=== PATIENT | female | born 1985 ===

== ENCOUNTER 2023-10-30 07:44 | Day surgery (SDC) | payer OTHER ==
[2023-10-30] MEDS ORDERED: POVIDONE-IODINE 118 ML BOTT TOP ONE ×2 (14:24→15:45)
[2023-10-30] MEDS ORDERED: LIDOCAINE HCL 1%/Epi 20ML VIAL IJ ONE ×2 (14:24→16:00)
[2023-10-30] MEDS ORDERED: CEFTRIAXONE SODIUM 2,000 MG VIAL ONE (14:24)
[2023-10-30] MEDS ORDERED: DIBUCAINE 15 GM OINT..GM. TUBE ONE (14:24)
[2023-10-30] MEDS ORDERED: BUPIVACAINE HCL/PF 0.25% 30ML VIAL InF ONE (14:24)
[2023-10-30] MEDS ORDERED: METRONIDAZOLE/SODIUM CHLORIDE 500 MG/100 ML PIGGYBACK IV ONE ×2 (14:24→16:00)
[2023-10-30] MEDS ORDERED: HEMOSTATIC MATRIX 1 KIT KIT TOP ONE ×2 (14:29→16:00)
[2023-10-30] MEDS ORDERED: TRIAMCINOLONE ACETONIDE 40 MG/ML VIAL ONE (14:29)
[2023-10-30] MEDS ORDERED: TRIAMCINOLONE ACETONIDE 40 MG/ML VIAL IJ ONE (15:45)
[2023-10-30] MEDS ORDERED: BUPIVACAINE HCL 30 ML VIAL IJ ONE (15:45)
[2023-10-30] MEDS ORDERED: CEFTRIAXONE SODIUM 2,000 MG VIAL IV ONE (16:00)
[2023-10-30] MEDS ORDERED: DIBUCAINE 15 GM OINT..GM. TUBE RECTAL ONE (16:00)
== END 2023-10-30 19:20 | disposition home or self-care (01) ==
LOC: CIR.AMB 07:44
PROVIDERS: ATTEND Colon & Rectal Surgery
DX: K64.2 Third degree hemorrhoids (principal); K62.3 Rectal prolapse; Z88.2 Allergy status to sulfonamides; Z88.1 Allergy status to other antibiotic agents